=== PATIENT | male | born 1970 | race Caucasian/White ===

== ENCOUNTER → 2023-06-06 08:33 | Outpatient (REF) | payer OTHER, SELFPAY | LOC: MRI 3T 08:33 | PROVIDERS: ATTENDING PHYSICIAN Internal Medicine Hematology & Oncology; FAMILY PHYSICIAN Family Medicine | DX: C20 Malignant neoplasm of rectum (principal); C78.7 Secondary malignant neoplasm of liver and intrahepatic bile duct | CPT/HCPCS: 72197; A9575 ==

== ENCOUNTER → 2023-06-28 06:33 | Day surgery (SDC) | payer OTHER, SELFPAY | LOC: GI 06:33 | PROVIDERS: ATTENDING PHYSICIAN Surgery | DX: Z12.11 Encounter for screening for malignant neoplasm of colon (principal); C20 Malignant neoplasm of rectum; K62.89 Other specified diseases of anus and rectum; D49.0 Neoplasm of unspecified behavior of digestive system; D12.4 Benign neoplasm of descending colon; Z85.048 Personal history of other malignant neoplasm of rectum, rectosigmoid junction, and anus | CPT/HCPCS: 45385; 45380; 88305; 88342 ==

== ENCOUNTER → 2023-10-18 11:24 | Outpatient (REF) | payer OTHER, SELFPAY | LOC: RAD 11:24 | PROVIDERS: ATTENDING PHYSICIAN Internal Medicine Hematology & Oncology; FAMILY PHYSICIAN Family Medicine | DX: C20 Malignant neoplasm of rectum (principal) | CPT/HCPCS: 71260; 74160; Q9967 ==

== ENCOUNTER → 2023-11-02 10:55 | Outpatient (REF) | payer OTHER, SELFPAY | LOC: MRI 3T 10:55 | PROVIDERS: ATTENDING PHYSICIAN Internal Medicine Hematology & Oncology; FAMILY PHYSICIAN Family Medicine | DX: C20 Malignant neoplasm of rectum (principal); C78.7 Secondary malignant neoplasm of liver and intrahepatic bile duct | CPT/HCPCS: 72197; A9575 ==

== ENCOUNTER → 2023-11-08 07:54 | Outpatient (REF) | payer OTHER, SELFPAY | LOC: PET 07:54 | PROVIDERS: ATTENDING PHYSICIAN Internal Medicine Hematology & Oncology | DX: C20 Malignant neoplasm of rectum (principal) | CPT/HCPCS: 78815; A9552 ==

== ENCOUNTER → 2024-01-30 11:25 | Outpatient (REF) | payer OTHER, SELFPAY | LOC: HWRAD 11:25 | PROVIDERS: ATTENDING PHYSICIAN Internal Medicine Hematology & Oncology; FAMILY PHYSICIAN Family Medicine | DX: C20 Malignant neoplasm of rectum (principal); C78.7 Secondary malignant neoplasm of liver and intrahepatic bile duct | CPT/HCPCS: 71260; 74177; Q9967 ==

== ENCOUNTER → 2024-05-01 14:19 | Outpatient (REF) | payer OTHER, SELFPAY | LOC: RAD 14:19 | PROVIDERS: ATTENDING PHYSICIAN Internal Medicine Hematology & Oncology; FAMILY PHYSICIAN Family Medicine | DX: C20 Malignant neoplasm of rectum (principal); C78.7 Secondary malignant neoplasm of liver and intrahepatic bile duct | CPT/HCPCS: 71260; 74177; Q9967 ==

== ENCOUNTER → 2024-07-02 15:01 | Outpatient (REF) | payer OTHER, SELFPAY | LOC: RAD 15:01 | PROVIDERS: ATTENDING PHYSICIAN Internal Medicine Hematology & Oncology; FAMILY PHYSICIAN Family Medicine | DX: C20 Malignant neoplasm of rectum (principal); C78.7 Secondary malignant neoplasm of liver and intrahepatic bile duct; C78.00 Secondary malignant neoplasm of unspecified lung | CPT/HCPCS: 71260; 74177; Q9967 ==

== ENCOUNTER → 2024-09-24 16:01 | Outpatient (REF) | payer OTHER, SELFPAY | LOC: RAD 16:01 | PROVIDERS: ATTENDING PHYSICIAN Internal Medicine Hematology & Oncology; FAMILY PHYSICIAN Family Medicine | DX: C20 Malignant neoplasm of rectum (principal); C78.7 Secondary malignant neoplasm of liver and intrahepatic bile duct | CPT/HCPCS: 71260; 74177; Q9967 ==

== ENCOUNTER → 2024-11-26 15:31 | Outpatient (REF) | payer OTHER, SELFPAY | LOC: RAD 15:31 | PROVIDERS: ATTENDING PHYSICIAN Internal Medicine Hematology & Oncology; FAMILY PHYSICIAN Family Medicine | DX: C20 Malignant neoplasm of rectum (principal); C78.7 Secondary malignant neoplasm of liver and intrahepatic bile duct; C78.00 Secondary malignant neoplasm of unspecified lung | CPT/HCPCS: 71260; 74177; Q9967 ==

== ENCOUNTER → 2025-02-24 14:36 | Outpatient (REF) | payer OTHER, SELFPAY | LOC: RAD 14:36 | PROVIDERS: ATTENDING PHYSICIAN Internal Medicine Hematology & Oncology; FAMILY PHYSICIAN Family Medicine | DX: C20 Malignant neoplasm of rectum (principal); C78.7 Secondary malignant neoplasm of liver and intrahepatic bile duct; C78.00 Secondary malignant neoplasm of unspecified lung | CPT/HCPCS: 71260; 74177; Q9967 ==